=== PATIENT | male | born 1945 | race Caucasian/White ===

== ENCOUNTER 2017-05-09 07:58 | Day surgery (SDC) | payer MEDICARE, OTHER ==
[~2017-05-09] VITALS: Ht 167.6 cm; Wt 107.5 kg
[~2017-05-09 07:58] MED LIST: ASPIR-LOW81 MG PO; DILT-XR240 MG PO; FENOFIBRATE54 MG PO; LIPITOR40 MG PO; LOSARTAN POTAS100 MG PO; METFORMIN HCL500 M2 PO; METOPROLOL SUCC50 MG PO; SYNTHROID175 MCG PO; VITAMIN E1000 UNI1 PO
[2017-05-09] MEDS ORDERED: ADVIL200 MG PO (08:13)
[2017-05-09] MEDS ORDERED: PAIN RELIEF500 M1 PO (08:14)
--- NOTE | 2017-05-09 10:09 | NUR ---
BLOOD SUGAR 132.
--- NOTE | 2017-05-09 11:19 | NUR ---
MD INSTRUCTS TO REDOSE EACH EYE DROP ONE TIME.
== END 2017-05-09 12:55 | disposition home or self-care (01) ==
LOC: OPS 07:58 → DS 07:58 → OPS 09:00
PROC: 08RJ3JZ Replacement of Right Lens with Synthetic Substitute, Percutaneous Approach (ICD-10-PCS; principal; 2017-05-09)
DX: H25.11 Age-related nuclear cataract, right eye (principal); H40.1114 Primary open-angle glaucoma, right eye, indeterminate stage; E11.9 Type 2 diabetes mellitus without complications; I10 Essential (primary) hypertension; E78.00 Pure hypercholesterolemia, unspecified; E07.9 Disorder of thyroid, unspecified; Z87.891 Personal history of nicotine dependence; Z98.890 Other specified postprocedural states; Z79.899 Other long term (current) drug therapy
CPT/HCPCS: 00140; C1783; J2250

== ENCOUNTER 2017-05-23 09:55 | Day surgery (SDC) | payer MEDICARE, OTHER ==
[~2017-05-23] VITALS: Ht 167.6 cm; Wt 107.5 kg
[~2017-05-23 09:55] MED LIST changes: +ADVIL200 MG PO; +PAIN RELIEF500 M1 PO
== END 2017-05-23 12:05 | disposition home or self-care (01) ==
LOC: OPS 09:55 → DS 11:00 → OPS 12:05
PROVIDERS: Ophthalmology
PROC: 08RK3JZ Replacement of Left Lens with Synthetic Substitute, Percutaneous Approach (ICD-10-PCS; principal; 2017-05-23 11:00)
DX: H25.12 Age-related nuclear cataract, left eye (principal); H40.1122 Primary open-angle glaucoma, left eye, moderate stage; E78.00 Pure hypercholesterolemia, unspecified; I10 Essential (primary) hypertension; E11.9 Type 2 diabetes mellitus without complications; E07.9 Disorder of thyroid, unspecified; Z98.890 Other specified postprocedural states; Z87.891 Personal history of nicotine dependence; Z79.899 Other long term (current) drug therapy
CPT/HCPCS: 00140; C1783

== ENCOUNTER 2021-12-04 06:25 | Day surgery (SDC) | payer MEDICARE, BC ==
[~2021-12-04] VITALS: Ht 167.6 cm; Wt 100.4 kg
--- NOTE | 2021-12-04 06:59 | NUR ---
COVID SWAB DONE TO BOTH NARES AND SENT TO IN HOUSE LAB.
--- NOTE | 2021-12-04 08:49 | NUR ---
PT ALERT, ORIENTED AND SUPPORTED BY HIS HALIE. PT IS PLEASANT, ALL QUESTIONS ASKED ANSWERED. PT DID REQUEST PRAYER, HALIE WILL LEAVE AND COME BACK FOR DC. WILL FOLLOW
[2021-12-04] MEDS ORDERED: HYDROCODON-ACE1 EA10 PO (09:42)
--- NOTE | 2021-12-04 09:49 | NUR ---
12/04/21 0949 Cheryl Britt 0940- PT ARRIVES TO PACU NONAROUSABLE TO STIMULI WITH AN OPA IN PLACE. RESP EVEN AND UNLABORED. OXYGEN SAT HIGH 90'S TO 100% ON 6L VIA MASK. PT SNORING ON ARRIVAL, HEAD REPOSITIONED AND SNORING CLEARED.
--- NOTE | 2021-12-04 10:30 | NUR ---
1020-PATIENT BACK TO ROOM FROM PACU ON . RECEIVED REPORT FROM ROHINI MELCHOR. PATIENT IS AWAKE. RESP EVEN AND UNLABORED. VSS. DENIES PAIN AND NAUSEA. DRESSING IS CLEAN, DRY, AND INTACT. ICE PACK IN PLACE. BED RAILS UP. AT BED SIDE. PATIENT TAKING SIPS OF WATER. CALL LIGHT WITHIN REACH.
--- NOTE | 2021-12-04 11:35 | NUR ---
PATIENT ASSESSMENT COMPLETE. PATIENT IS ALERT AND ORIENTED. BREATHING EQUAL AND UNLABORED. OXYGEN SATURATIONS ARE ABOVE 95%. PATIENT IS ABLE TO BEAR WEIGHT AND WAS ABLE TO AMBULATE TO RESTROOM. VOIDED YELLOW AND CLEAR URINE. PATIENT WAS ABLE TO TOLERATE AMBULATION WELL. PATIENT WAS ABLE TO DRESS SELF. DISCHARGE INSTRUCTION GIVEN AND UNDERSTOOD. PATIENT IV D/C'D. PATIENT WAS WHEELED OUT OF FACILITY WITH TO PRIVATE AUTO.
--- NOTE | 2021-12-07 06:35 | OR ---
[facility] [address] [place], [place] [address] Signed DATE OF OPERATION: 12/04/2021 SURGEON: Luca So MD PREOPERATIVE DIAGNOSIS: Medial meniscal tear, left knee. POSTOPERATIVE DIAGNOSIS: Medial meniscal tear, left knee. PROCEDURE PERFORMED: Left knee arthroscopy with partial medial meniscectomy. JOINTER SUBMARINE CABLE: None. ANESTHESIA: General. BLOOD LOSS: Minimal. TOURNIQUET TIME: Zero. BRIEF HISTORY: Rocio is a 76-year-old gentleman with pain and locking in his knee. MRI was consistent with a large posteromedial meniscus tear of degenerative nature. Risks and benefits of operative treatment were discussed with him. He elected to proceed. Once consent was obtained, he was taken to the operating room. After adequate anesthesia, he was placed on operating room table. All downside pressure points well padded. The right leg was flexed, abducted and externally rotated on a well-padded leg jacobs. The left was placed in well-padded leg jacobs and prepped and draped in a standard sterile fashion. The portal sites were injected with 0.25% Marcaine with epinephrine. Standard inferior lateral and superolateral portals were made. The scope was introduced. ARTHROSCOPIC FINDINGS: Moderate to significant synovitis was noted throughout the knee. 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 Medial and lateral gutters were clear with small osteophytes. ACL and PCL Electronically Signed By: LUCA SO MD 12/07/21 0635 PATIENT NAME: ROCIO FIELDS OPERATIVE REPORT DATE OF : 49 REPORT #: [id number] PHYSICIAN: LUCA SO MD PCP: CLARICE GRULLON MD REPORT IS CONFIDENTIAL AND NOT TO BE RELEASED WITHOUT AUTHORIZATION [facility] [address] [place], [place] [address] Signed were intact. Lateral compartment was intact. There was some minor fraying of the meniscus. The medial compartment showed degenerative meniscus tear from the posterior medial corner extending posteriorly with horizontal radial and macerated components. There was grade 3 chondromalacia to the posterior 2/3rd of the femur of the femoral condyle and grade 2 changes on tibial side. DESCRIPTION OF OPERATION: Standard inferomedial portal was made after localization using the spinal needle. The straight and curved biters were used to trim the meniscus tear back to a stable rim and all debris was evacuated using the shaver. The shaver was then used to smooth the contours of the meniscus and feathered it out anteriorly. Several chondral flaps on the femur were also taken off. The scope was withdrawn. Portals were closed with 3-0 nylon. The knee was injected with 60 mg Toradol at the end of the case. The wounds were dressed with Adaptic, ABD, and Ron wrap. He tolerated the procedure well. All sponge, needle, and instrument counts were correct. Luca So MD BA/MODL /[id number] Copies: ~ Electronically Signed By: LUCA SO MD 12/07/21 0635 PATIENT NAME: ROCIO FIELDS OPERATIVE REPORT DATE OF : 49 REPORT #: [id number] PHYSICIAN: LUCA SO MD PCP: CLARICE GRULLON MD REPORT IS CONFIDENTIAL AND NOT TO BE RELEASED WITHOUT AUTHORIZATION
== END 2021-12-04 11:40 | disposition home or self-care (01) ==
LOC: DS 06:25
PROVIDERS: ATTEND Specialist
PROC: 0SBD4ZZ Excision of Left Knee Joint, Percutaneous Endoscopic Approach (ICD-10-PCS; principal; 2021-12-04 09:30)
DX: M23.222 Derangement of posterior horn of medial meniscus due to old tear or injury, left knee (principal); M22.42 Chondromalacia patellae, left knee; M25.762 Osteophyte, left knee; Z87.891 Personal history of nicotine dependence; Z20.822 Contact with and (suspected) exposure to COVID-19
CPT/HCPCS: 87502; C9803; J0690; J1885; J2001; J2250; J2405; J2704; J7121; U0003

== ENCOUNTER 2022-07-06 08:20 | Day surgery (SDC) | payer MEDICARE, BC ==
--- NOTE | 2022-07-05 08:35 | NUR ---
LAB TO BE OBTAINED AT [facility], PROVIDED COPY OF ORDER TO PATIENT AND FAXED ORDER OF LABS TO [facility],
[~2022-07-06] VITALS: Ht 167.6 cm; Wt 104.5 kg
--- NOTE | ~2022-07-06 | OR ---
[facility] [address] [place], [place] [address] Draft DATE OF OPERATION: 07/06/2022 SURGEON: Ulices Galvez MD PREOPERATIVE DIAGNOSIS: Left recurrent serous otitis media with conductive hearing loss. POSTOPERATIVE DIAGNOSIS: Left recurrent serous otitis media with conductive hearing loss. PROCEDURE: Left myringotomy and ventilation tube insertion with a T-tube. ANESTHESIA: General LMA, GREEN MEAT PACKER, Kareem. PREOPERATIVE HISTORY: Mr. Fields is a 76-year-old man with a long history of left ear middle ear effusions. He was treated with a Roche tube a year or so ago with resolution of his symptoms, but the tube has extruded. He has had recurrent effusion, hearing loss and flat tympanogram. He taken to the operating for the above-mentioned procedure. OPERATIVE PROCEDURE AND FINDINGS: After informed consent, the patient was taken to the operating room, placed in a supine position where general LMA anesthesia was induced. The patient and procedure were verified. The left ear was examined with the operating microscope. The extruded Roche tube in the ear canal was removed. The eardrum was dull, retracted with the middle ear effusion. Inferior radial myringotomy was made. Serous effusion suctioned from middle ear space. A T-tube placed in the myringotomy site. Cipro ophthalmic solution applied to the ear canal, cotton ball the meatus. The patient tolerated the procedure well, was awakened, extubated, and transported to recovery room in good condition. No complications. BLOOD LOSS: Minimal. SPECIMENS: No specimens. DRAINS: PATIENT NAME: ROCIO FIELDS OPERATIVE REPORT DATE OF : 49 REPORT #: [id number] PHYSICIAN: ULICES GALVEZ MD PCP: CLARICE GRULLON MD REPORT IS CONFIDENTIAL AND NOT TO BE RELEASED WITHOUT AUTHORIZATION [address] [place], [place] [address] [facility]. Ulices Galvez MD /TOM /[id number] Copies: ~ PATIENT NAME: ROCIO FIELDS OPERATIVE REPORT DATE OF : 49 REPORT #: [id number] PHYSICIAN: ULICES GALVEZ MD PCP: CLARCIE GRULLON MD REPORT IS CONFIDENTIAL AND NOT TO BE RELEASED WITHOUT AUTHORIZATION
[~2022-07-06 08:20] MED LIST changes: +ACARBOSE25 MG PO; +DOXAZOSIN MESYLA8 MG PO; +HYDROCODON-ACE1 EA10 PO; +K-TAB ER20 MEQ PO; +LASIX40 MG PO; +PEPCID40 MG PO
--- NOTE | 2022-07-06 10:26 | NUR ---
07/06/22 Angelo6 Darlene Syed 1022 PATIENT ARRIVES TO PACU AWAKE ASKING/ANSWERING QUESTIONS APPROPRIATELY. RESP EVEN AND UNLABORED, MASK AT 6 LITERS. 1025 PATIENT AWAKE, DENIES PAIN OR NAUSEA. OXYGEN MASK OFF. DENIES NEEDS. RESP EVEN AND UNLABORED, ROOM AIR SATS >96%.
--- NOTE | 2022-07-06 13:31 | NUR ---
LE 1145 PATIENT HAS MET DISCHARGE CRITERIA. PATIENT IV D/C'D WNL. PATIENT GIVEN DISCHARGE INSTRUCTIONS AND UNDERSTOOD. NO QUESTIONS AT THIS TIME. PATIENT WHEELED OUT OF FACILITY TO PRIVATE AUTO. NO FUTHER NEEDS.
== END 2022-07-06 11:35 | disposition home or self-care (01) ==
LOC: DS 08:20 → OPS 08:20 → DS 09:00 → OPS 10:30
PROVIDERS: ATTEND Otolaryngology
PROC: 099600Z Drainage of Left Middle Ear with Drainage Device, Open Approach (ICD-10-PCS; principal; 2022-07-06 10:30)
DX: H65.92 Unspecified nonsuppurative otitis media, left ear (principal)
CPT/HCPCS: 80053; 85025; J0131; J2001; J2405; J2704; J7121